=== PATIENT | male | born 1975 | race Caucasian/White ===

== ENCOUNTER 2016-10-15 20:03 | Emergency (ER) | payer OTHER ==
[~2016-10-15] VITALS: Ht 185.4 cm; Wt 106.6 kg
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
--- NOTE | 2016-10-15 20:15 | NUR ---
[facility] ANTONIO EMT IS AT THE BEDSIDE FOR WOUND CARE.
[2016-10-15] MEDS ORDERED: LIDOCAINE 0.5%-EPI 1:200,000 50 ML VIAL ONE (20:28)
[2016-10-15] MEDS ORDERED: FAMOTIDINE (20 MG) 20 MG TABLET ONE (20:43)
[2016-10-15] MEDS ORDERED: IBUPROFEN 600 MG TABLET PO ONE (20:43)
[2016-10-15] MEDS ORDERED: LEVETIRACETAM (250 MG) 250 MG TABLET PO ONE ×2 (20:43→21:00)
[2016-10-15 20:51] VITALS: BP 144/92
[2016-10-15] MEDS ORDERED: FAMOTIDINE (20 MG) 20 MG TABLET PO ONE (21:00)
[2016-10-15] MEDS ORDERED: IBUPROFEN 400 MG TABLET PO ONE (21:00)
== END 2016-10-15 20:50 ==
LOC: ER 20:04
DX: S51.012A Laceration without foreign body of left elbow, initial encounter (principal); S70.12XA Contusion of left thigh, initial encounter; Y04.0XXA Assault by unarmed brawl or fight, initial encounter; Y92.89 Other specified places as the place of occurrence of the external cause; Y93.89 Activity, other specified; Y99.8 Other external cause status
CPT/HCPCS: 12001; 99285; A4606; A6402; J3490; Z7610